=== PATIENT | female | born 1955 | race Caucasian/White ===

== ENCOUNTER 2018-01-09 12:11 | Outpatient (CLI) | payer MEDICARE, MEDICAID ==
[~2018-01-09 12:11] MED LIST: HYDR25TA4 PO
== END 2018-01-09 23:59 | disposition home or self-care (01) ==
LOC: CARD DIAG 12:11
PROVIDERS: ATTEND Registered Nurse
DX: I07.1 Rheumatic tricuspid insufficiency (principal); F17.200 Nicotine dependence, unspecified, uncomplicated
CPT/HCPCS: 93306

== ENCOUNTER 2019-04-28 05:39 | Inpatient (IN) | payer MEDICARE, MEDICAID ==
[2019-04-23 11:37] LABS: BASOPHILS # (AUTO) 0.1 X10'3 (0-0.2); BASOPHILS % (AUTO) 1.5 % (0-1); CLARITY,URINE CLEAR (Clear); COLOR,URINE YELLOW (Yellow); EOSINOPHILS # (AUTO) 0.3 X10'3 (0-0.9); EOSINOPHILS % (AUTO) 3.7 % (0-6); GLUCOSE, URINE NEGATIVE (Neg); KETONES,URINE NEGATIVE (Neg); LEUKOCYTE ESTERASE ,URINE NEGATIVE (Neg); LYMPHOCYTES # (AUTO) 2.1 X10'3 (1.1-4.8); LYMPHOCYTES % (AUTO) 24.9 % (21-51); MEAN CORPUSCULAR HEMOGLOBIN 32.8 PG (27.0-31.0); MEAN CORPUSCULAR HGB CONC 34.6 g/dL (33.0-36.5); MEAN CORPUSCULAR VOLUME 94.7 FL (78-98); MEAN PLATELET VOLUME 7.2 FL (7.4-10.4); MONOCYTES # (AUTO) 0.5 X10'3 (0-0.9); MONOCYTES % (AUTO) 6.3 % (2-12); NEUTROPHILS # (AUTO) 5.4 X10'3 (1.8-7.7); NEUTROPHILS % (AUTO) 63.6 % (42-75); NITRITES, URINE NEGATIVE (Neg); OCCULT BLOOD,URINE NEGATIVE (Neg); PRE OP HEMATOCRIT 44.9 % (35.0-45.0); PRE OP HEMOGLOBIN 15.6 g/dL (12.0-16.0); PRE OP PLATELET COUNT 324 X10'3 (140-440); PROTEIN,URINE NEGATIVE (Neg); RED BLOOD COUNT 4.74 X10'6 (4.20-5.60); RED CELL DISTRIBUTION WIDTH 14.4 % (11.5-14.5); UROBILINOGEN,URINE 0.2 E.U/dL (0.2-1.0)
[2019-04-23 11:39] LABS: UA COLLECTION TYPE CLN CATCH MIDSTREAM
[2019-04-23 11:50] LABS: PRE OP INR 0.9 INR; PRE OP PROTIME 9.9 SECONDS (9.0-12.0)
[2019-04-23 11:54] LABS: ALBUMIN 3.6 G/DL (3.4-5.0); ALBUMIN/GLOBULIN RATIO 0.8 (1.1-1.5); ALKALINE PHOSPHATASE 110 IU/L (46-116); BLOOD UREA NITROGEN 6 MG/DL (7-18); BUN/CREATININE RATIO 8.8 (6.6-38.0); CALCIUM 9.2 MG/DL (8.5-10.1); CHLORIDE 101 MMOL/L (99-107); CREATININE 0.68 MG/DL (0.40-0.90); PRE OP ALT 18 U/L (30-65); PRE OP ANION GAP 8 (8-16); PRE OP AST 16 U/L (10-37); PRE OP BILIRUB, TOTAL 0.4 MG/DL (0.0-1.0); PRE OP GLUCOSE 92 MG/DL (70-104); PRE OP POTASSIUM 4.6 MMOL/L (3.4-5.1); PRE OP SODIUM 138 MMOL/L (135-145); TOTAL CARBON DIOXIDE 28.8 MMOL/L (24-32); TOTAL PROTEIN 8.1 G/DL (6.4-8.2); eGFR 87 ML/MIN
[2019-04-28] VITALS (21 sets, daily range): BP systolic 121–176; BP diastolic 50–76
[~2019-04-28] VITALS: Ht 160 cm; Wt 83.0 kg
[~2019-04-28 05:39] MED LIST changes: +ALBU8.5H8 INH; +ASPI-1265 PO; +ATOR20TA66 PO; +CHOL200013 PO; +CYAN100097 PO; +FERR325T28 PO; -HYDR25TA4 PO; +LISI10TA4 PO; +TIOT4MIS2 PO; +albuterol 2.5 MG/3 ML nebule NEB ONE; +cefazolin/dext.iso 2gm/50ml 50 ML IV ONE; +famotidine 20mg tablet PO ONE; +ringers solution, lacted 1,000 ML IV SCH
[2019-04-28] MEDS ORDERED: phenylephrine inj 20 MG in normal saline 250ml IV soln 250 ML IV PRN (06:50)
[2019-04-28] MEDS ORDERED: nitroPRUSSIDE in NS 100 ML IV PRN (06:50)
[2019-04-28] MEDS ORDERED: heparin 10,000 units/1 ML INJ ONE (07:19)
[2019-04-28] MEDS ORDERED: LIDOcaine 1% (10mg/ml) 2ml vial ONE ×2 (07:19→07:33)
[2019-04-28] MEDS ORDERED: morphine 4 MG/ML inj SYRINge IV PRN ×2 (08:45)
[2019-04-28] MEDS ORDERED: meperidine/PF 25mg/ml syringe IV PRN ×3 (08:45)
[2019-04-28] MEDS ORDERED: ringers solution, lacted 1,000 ML IV SCH (08:45)
[2019-04-28] MEDS ORDERED: proCHLORperazine 10 MG/2 ml inj IV PRN (08:45)
[2019-04-28] MEDS ORDERED: ondansetron/PF 4mg/2ml inj IV PRN ×2 (08:45→12:35)
[2019-04-28] MEDS ORDERED: dexamethasone sod phosphate 10mg/ml inj ONE (09:50)
[2019-04-28] MEDS ORDERED: sevoflurane 250ml liquid IH ONE (09:50)
[2019-04-28] MEDS ORDERED: glycopyrrolate 0.2mg/ml inj ONE (09:50)
[2019-04-28] MEDS ORDERED: phenylephrine 10mg/ml inj. ONE (09:50)
[2019-04-28] MEDS ORDERED: fentaNYL/PF 50MCG/1 ML 2ML syringe ONE (09:50)
[2019-04-28] MEDS ORDERED: desflurane 240ml liquid inh. IH ONE (09:50)
[2019-04-28] MEDS ORDERED: ondansetron/PF 4mg/2ml inj ONE (09:50)
[2019-04-28] MEDS ORDERED: neostigmine methylsulfate 1 MG/ML 10ml vial ONE (09:50)
[2019-04-28] MEDS ORDERED: nitroPRUSSIDE 20mg/NS 100mL (0.2mg/mL) VIAL IV ONE (09:50)
[2019-04-28] MEDS ORDERED: midazolam 2 mg/2 ml injection ONE (09:51)
[2019-04-28] MEDS ORDERED: LIDOcaine 2% (20mg/ml) 5ml vial ONE (10:00)
[2019-04-28] MEDS ORDERED: heparin 1,000unit/ml 10ml vial 10 ML ONE (10:26)
[2019-04-28] MEDS ORDERED: meperidine/PF 50mg/ml syringe ONE (11:09)
[2019-04-28] MEDS ORDERED: propofol inj 20 ML IV ONE (11:29)
--- NOTE | 2019-04-28 11:34 | NUR ---
Received from OR via ICU BED , accompanied by Anesthesiologist MICHAELLE and report given by Anesthesiolgist. PATIENT WITH ART LINE TO RIGHT UE. 18G PIV IN LEFT HAND RUNNING NIPRIDE AND LR. LEFT NECK DRESSINGS ARE CDI CURRENTLY WITH A JOSE GUADALUPE DRAIN MAINTAINING SUCTION. SCDS DONNED. 10L MASK ON WITH 97% SATURATIONS. TEMP WNL AND PATIENT IS NEUROLOGICALLY INTACT. PUSH PULLS AND FUNDRAISING MANAGER ALL EQUAL. TONGUE MIDLINE AND NO FACIAL ASYMMETRY PRESENT. SPEECH IS CLEAR. DISCOMFORT TO LEFT NECK BUT DECLINES PAIN MEDS AT THIS TIME. WILL CONTINUE TO ASSEESS. Addendum: 04/28/19 at 1147 by Yusef Montes RN, RN Amended: Links added.
--- NOTE | 2019-04-28 12:14 | NUR ---
ALL CRITERIA FOR TRANSFER TO THE FLOOR HAS BEEN ACHIEVED. VSS. BED LOW, CALL LIGHT AND VS. SET IN PLACE. RN PRESENT TO ACCEPT CARE. PATIENT RESTING COMFORTABLY IN BED. BELONGINGS SENT WITH PATIENT. DRESSINGS CDI. PATIENTS RN CLINTON PRESENT TO ACCEPT CARE. VSS. PATIENT ONLY HAS C.O. SORE/ DRY THROAT. DRESSING TO LEFT SIDE OF NECK IS CDI. JOSE GUADALUPE MAINTAINING SUCTION. SITTING UPRIGHT IN BED. PATIENT STILL NEUROLOGICALLY INTACT. DEBBIE ALONZO ACCEPTING CARE OF PATIENT. Addendum: 04/28/19 at 1225 by Yusef Williamson - DEBBIE LEWIS Amended: Links added.
--- NOTE | 2019-04-28 14:00 | NUR ---
Per Dr. Barbosa, no meds, no labs, no new orders other than already in place.
[2019-04-28] MEDS ORDERED: vitamin D (cholecalciferol) 1,000 unit tablet PO SCH (14:35)
[2019-04-28] MEDS ORDERED: albuterol 2.5 MG/3 ML nebule NEB PRN (14:35)
[2019-04-28] MEDS: ferrous sulfate 325mg tablet PO SCH (20:50)
[2019-04-28] MEDS: nitroPRUSSIDE in NS 100 ML IV PRN (20:50)
[2019-04-28] MEDS ORDERED: HYDROcodone/acetaminophen 5mg/325mg tablet PO PRN (22:10)
[2019-04-29] VITALS (16 sets, daily range): BP systolic 128–179; BP diastolic 59–84
[2019-04-29] MEDS: nitroPRUSSIDE in NS 100 ML IV PRN ×2 (01:33→09:51)
[2019-04-29] MEDS ORDERED: famotidine 20mg tablet PO ONE (07:20)
[2019-04-29] MEDS ORDERED: atorvastatin 20mg tablet PO SCH (08:00)
[2019-04-29] MEDS ORDERED: aspirin 81mg tab.chew PO SCH (08:00)
[2019-04-29] MEDS ORDERED: cyanocobalamin 500mcg tablet PO SCH (08:00)
[2019-04-29] MEDS ORDERED: lisinopril 10 MG tablet PO SCH (08:00)
[2019-04-29] MEDS: ipratropium 0.5 MG/2.5ML nebule NEB SCH ×2 (08:14→13:43)
[2019-04-29] MEDS: ferrous sulfate 325mg tablet PO SCH (08:57)
[2019-04-29] MEDS ORDERED: metoprolol tartrate 50mg tablet PO SCH ×2 (10:00→20:00)
[2019-04-29] MEDS ORDERED: lisinopril 20mg tablet PO ONE (10:10)
[2019-04-29] MEDS ORDERED: HYDR-4383 PO (14:48)
[2019-04-29] MEDS ORDERED: METO-467 PO (14:48)
--- NOTE | 2019-04-29 16:05 | NUR ---
pt. discharged per Dr. Barbosa verbal order. Metoprolol called in to [facility] pharmacy. [place] will be called in by Dr. Avila' office.
--- NOTE | 2019-04-29 16:50 | NUR ---
Leon panda called into Yudith @ Dr. Avila' office
== END 2019-04-29 15:15 | disposition home or self-care (01) | DRG 39 ==
LOC: PAS IN 05:39 → ICU 2S 12:12 → EDSTATUS 12:30
PROVIDERS: ADMIT Surgery; ATTEND Surgery
PROC: 03CN0ZZ Extirpation of Matter from Left External Carotid Artery, Open Approach (ICD-10-PCS; 2019-04-28)
PROC: 03CL0ZZ Extirpation of Matter from Left Internal Carotid Artery, Open Approach (ICD-10-PCS; 2019-04-28)
PROC: 03UJ0KZ Supplement Left Common Carotid Artery with Nonautologous Tissue Substitute, Open Approach (ICD-10-PCS; 2019-04-28)
PROC: 03UL0KZ Supplement Left Internal Carotid Artery with Nonautologous Tissue Substitute, Open Approach (ICD-10-PCS; 2019-04-28)
PROC: 03UN0KZ Supplement Left External Carotid Artery with Nonautologous Tissue Substitute, Open Approach (ICD-10-PCS; 2019-04-28)
PROC: 03CJ0ZZ Extirpation of Matter from Left Common Carotid Artery, Open Approach (ICD-10-PCS; principal; 2019-04-28 09:50)
DX: I65.22 Occlusion and stenosis of left carotid artery (principal); F17.210 Nicotine dependence, cigarettes, uncomplicated; K21.9 Gastro-esophageal reflux disease without esophagitis; I10 Essential (primary) hypertension; J44.9 Chronic obstructive pulmonary disease, unspecified; E66.9 Obesity, unspecified; Z68.32 Body mass index [BMI] 32.0-32.9, adult; Z82.49 Family history of ischemic heart disease and other diseases of the circulatory system; Z90.49 Acquired absence of other specified parts of digestive tract
CPT/HCPCS: 36415; 71046; 80053; 81003; 82948; 85025; 85610; 85730; 86885; 86900; 86901; 87081; 94640; 94760; 95813; 95816; A4618; A7000; C1768; G0378; J1100; J1644; J2001; J2175; J2250; J2370; J2405; J2704; J2710; J3010; J3420; J3490; J7040; J7050; J7120

== ENCOUNTER 2019-04-30 08:41 | Emergency (ER) | payer MEDICARE, MEDICAID ==
[~2019-04-30] VITALS: Ht 160 cm; Wt 85.8 kg
[~2019-04-30 08:41] MED LIST changes: -ALBU8.5H8 INH; +HYDR-4383 PO; +METO-467 PO; -albuterol 2.5 MG/3 ML nebule NEB ONE; -cefazolin/dext.iso 2gm/50ml 50 ML IV ONE; -famotidine 20mg tablet PO ONE; -ringers solution, lacted 1,000 ML IV SCH
--- NOTE | 2019-04-30 09:03 | NUR ---
awaiting ed md.
--- NOTE | 2019-04-30 09:19 | NUR ---
Dr. See at bedside.
[2019-04-30 09:35] LABS: CLARITY,URINE CLEAR (Clear); COLOR,URINE YELLOW (Yellow); GLUCOSE, URINE NEGATIVE (Neg); KETONES,URINE NEGATIVE (Neg); LEUKOCYTE ESTERASE ,URINE NEGATIVE (Neg); NITRITES, URINE NEGATIVE (Neg); OCCULT BLOOD,URINE MODERATE (Neg); PROTEIN,URINE NEGATIVE (Neg); UROBILINOGEN,URINE 0.2 E.U/dL (0.2-1.0)
[2019-04-30 09:36] LABS: UA COLLECTION TYPE FOLEY CATH
--- NOTE | 2019-04-30 09:40 | NUR ---
awaiting for ua result.
[2019-04-30 09:42] LABS: SQUAMOUS EPITHELIAL CELL,UR FEW /LPF (FEW)
[2019-04-30 09:43] LABS: RBC,URINE 20-50 /HPF (0-2); WBC,URINE 0-4 /HPF (0-4)
[2019-04-30 09:44] LABS: BACTERIA,URINE FEW /HPF (Neg)
[2019-04-30 10:32] VITALS: BP 129/60
== END 2019-04-30 10:35 | disposition home or self-care (01) ==
LOC: ER 08:41
DX: R33.9 Retention of urine, unspecified (principal); G89.29 Other chronic pain; Z79.899 Other long term (current) drug therapy; Z88.0 Allergy status to penicillin; Z79.82 Long term (current) use of aspirin
CPT/HCPCS: 81001; 99284

== ENCOUNTER 2020-03-30 01:35 | Emergency (ER) | payer MEDICARE, MEDICAID ==
[~2020-03-30] VITALS: Ht 160 cm; Wt 80.9 kg
[2020-03-30] MEDS ORDERED: oxymetazoline 15 ML nasal spray NS ONE (01:45)
[2020-03-30 02:51] VITALS: BP 145/66
== END 2020-03-30 02:52 | disposition home or self-care (01) ==
LOC: ER 01:35
DX: R04.0 Epistaxis (principal); I25.10 Atherosclerotic heart disease of native coronary artery without angina pectoris; G89.29 Other chronic pain; Z98.61 Coronary angioplasty status; Z98.890 Other specified postprocedural states; Z88.0 Allergy status to penicillin; Z79.82 Long term (current) use of aspirin; Z79.899 Other long term (current) drug therapy
CPT/HCPCS: 99282; 99284

== ENCOUNTER 2021-04-05 10:25 | Day surgery (SDC) | payer MEDICARE, MEDICAID ==
[2021-03-22 14:19] LABS: BASOPHILS # (AUTO) 0.1 X10'3 (0-0.2); BASOPHILS % (AUTO) 1.1 % (0-1); EOSINOPHILS # (AUTO) 0.3 X10'3 (0-0.9); EOSINOPHILS % (AUTO) 3.3 % (0-6); LYMPHOCYTES # (AUTO) 1.2 X10'3 (1.1-4.8); LYMPHOCYTES % (AUTO) 14.8 % (21-51); MEAN CORPUSCULAR HEMOGLOBIN 32.1 PG (27.0-31.0); MEAN CORPUSCULAR HGB CONC 32.6 g/dL (33.0-36.5); MEAN CORPUSCULAR VOLUME 98.4 FL (78-98); MEAN PLATELET VOLUME 7.1 FL (7.4-10.4); MONOCYTES # (AUTO) 0.6 X10'3 (0-0.9); MONOCYTES % (AUTO) 7.6 % (2-12); NEUTROPHILS # (AUTO) 6.1 X10'3 (1.8-7.7); NEUTROPHILS % (AUTO) 73.2 % (42-75); PRE OP HEMOGLOBIN 11.1 g/dL (12.0-16.0); PRE OP PLATELET COUNT 433 X10'3 (140-440); RED BLOOD COUNT 3.45 X10'6 (4.20-5.60)
[2021-03-22 14:32] LABS: ALBUMIN 3.4 G/DL (3.4-5.0); ALBUMIN/GLOBULIN RATIO 0.9 (1.1-1.5); ALKALINE PHOSPHATASE 112 IU/L (46-116); BLOOD UREA NITROGEN 9 MG/DL (7-18); BUN/CREATININE RATIO 12.7 (6.6-38.0); CALCIUM 8.6 MG/DL (8.5-10.1); CHLORIDE 103 MMOL/L (99-107); CREATININE 0.71 MG/DL (0.40-0.90); PRE OP ALT 19 U/L (30-65); PRE OP ANION GAP 9 (8-16); PRE OP AST 18 U/L (10-37); PRE OP BILIRUB, TOTAL 0.1 MG/DL (0.0-1.0); PRE OP GLUCOSE 119 MG/DL (70-104); PRE OP POTASSIUM 4.1 MMOL/L (3.4-5.1); PRE OP SODIUM 138 MMOL/L (135-145); TOTAL CARBON DIOXIDE 26.5 MMOL/L (24-32); TOTAL PROTEIN 7.2 G/DL (6.4-8.2); eGFR 82 ML/MIN
[2021-04-05] VITALS (8 sets, daily range): BP systolic 128–163; BP diastolic 60–92
[~2021-04-05] VITALS: Ht 160 cm; Wt 83.2 kg
[~2021-04-05 10:25] MED LIST changes: +ALLER CLEAR PO; +CLOP75TA34 PO; +DOCUMENT DATE & TIME OF BETA-BLOCKER PO ONE; -HYDR-4383 PO; +LISI10TA27 PO; -LISI10TA4 PO; +MAGN500C16 PO; -METO-467 PO; +METO50TA17 PO; +OMEP40CA21 PO; -TIOT4MIS2 PO; +clindamycin-Cleocin 900mg/D5W 50 ML IV ONE; +famotidine 20mg tablet PO ONE; +ringers solution, lacted 1,000 ML IV SCH; +vancomycin 1,500 MG in NS 300ml IV soln IV ONE
[2021-04-05] MEDS ORDERED: triamcinolone acetonide 40mg/ml inj ONE (12:17)
[2021-04-05] MEDS ORDERED: BUPIVAcaine/PF 2.5mg/ml (0.25%) 10ml vial ONE (12:18)
[2021-04-05] MEDS ORDERED: dexamethasone sod phosphate 10mg/ml inj ONE (12:38)
[2021-04-05] MEDS ORDERED: ondansetron/PF 4mg/2ml inj ONE (12:38)
[2021-04-05] MEDS ORDERED: sevoflurane 250ml liquid IH ONE (12:38)
[2021-04-05] MEDS ORDERED: midazolam 1 mg/ML 2ml injection ONE (12:47)
[2021-04-05] MEDS ORDERED: fentaNYL/PF 50MCG/1 ML 2ML syringe ONE (12:47)
[2021-04-05] MEDS ORDERED: propofol inj 20 ML IV ONE (12:48)
[2021-04-05] MEDS ORDERED: LIDOcaine 2% (20mg/ml) 5ml vial ONE (12:48)
[2021-04-05] MEDS ORDERED: ketorolac trometh. 30mg/ml inj. ONE (14:00)
--- NOTE | 2021-04-05 14:12 | NUR ---
Received from OR via [facility] IN STABLE CONDITION , accompanied by Anesthesiologist and SPINNER FRAME report given by SPINNER FRAME AND Anesthesiolgist. Addendum: 04/05/21 at 1730 by Gaby Ferrell RN Amended: Links added.
--- NOTE | 2021-04-05 15:22 | NUR ---
PATIENT DISCHARGED HOME FROM PACU IN STABLE CONDITION AFTER WRITTEN AND VERBAL DISCHARGE INSRUCTIONS GIVEN. PATIENT GAVE VERBAL UNDERSTANDING OF INSTRUCTIONS GIVEN. PATIENT LEFT FACILITY IN WHEELCHAIR WITH RN. Addendum: 04/05/21 at 1736 by Gaby Ferrell RN Amended: Links added.
== END 2021-04-05 15:22 | disposition home or self-care (01) ==
LOC: PAS 10:25
PROVIDERS: ATTEND Orthopaedic Surgery
DX: S83.231A Complex tear of medial meniscus, current injury, right knee, initial encounter (principal); S83.271A Complex tear of lateral meniscus, current injury, right knee, initial encounter; M94.261 Chondromalacia, right knee; J44.9 Chronic obstructive pulmonary disease, unspecified; I10 Essential (primary) hypertension; K21.9 Gastro-esophageal reflux disease without esophagitis; E78.5 Hyperlipidemia, unspecified; E66.8 Other obesity; Z68.31 Body mass index [BMI] 31.0-31.9, adult; M17.0 Bilateral primary osteoarthritis of knee; F17.210 Nicotine dependence, cigarettes, uncomplicated; Z20.822 Contact with and (suspected) exposure to COVID-19; Z79.899 Other long term (current) drug therapy; Z79.82 Long term (current) use of aspirin; Z79.01 Long term (current) use of anticoagulants; Z88.8 Allergy status to other drugs, medicaments and biological substances; Z90.49 Acquired absence of other specified parts of digestive tract; Z98.890 Other specified postprocedural states; Z98.41 Cataract extraction status, right eye; Z98.42 Cataract extraction status, left eye; G89.29 Other chronic pain; Z87.19 Personal history of other diseases of the digestive system; Z88.0 Allergy status to penicillin; X58.XXXA Exposure to other specified factors, initial encounter; Y93.89 Activity, other specified; Y92.89 Other specified places as the place of occurrence of the external cause; Y99.8 Other external cause status
CPT/HCPCS: 29873; 29879; 29880; 36415; 71046; 80053; 82948; 85025; J1885; J2001; J2250; J2704; J3010; J3301; J3370; J3490; J7040; U0003; U0005; Z7506; Z7508; Z7512; A4215; A4618; A6250; A6449; A7000; J1100; J2405; J7120

== ENCOUNTER 2021-07-19 10:31 | Emergency (ER) | payer MEDICARE, MEDICAID ==
[~2021-07-19] VITALS: Ht 160 cm; Wt 83.2 kg
[2021-07-19] VITALS (8 sets, daily range): BP systolic 121–140; BP diastolic 58–92
[~2021-07-19 10:31] MED LIST changes: +ALBU18HF2 PO; -DOCUMENT DATE & TIME OF BETA-BLOCKER PO ONE; +TIOT4MIS2 PO; -clindamycin-Cleocin 900mg/D5W 50 ML IV ONE; -famotidine 20mg tablet PO ONE; -ringers solution, lacted 1,000 ML IV SCH; -vancomycin 1,500 MG in NS 300ml IV soln IV ONE
[2021-07-19 11:13] LABS: BASOPHILS # (AUTO) 0.1 X10'3 (0-0.2); BASOPHILS % (AUTO) 1.4 % (0-1); EOSINOPHILS # (AUTO) 0.1 X10'3 (0-0.9); EOSINOPHILS % (AUTO) 0.9 % (0-6); LYMPHOCYTES # (AUTO) 0.6 X10'3 (1.1-4.8); LYMPHOCYTES % (AUTO) 10.7 % (21-51); MEAN CORPUSCULAR HGB CONC 30.2 g/dL (33.0-36.5); MEAN CORPUSCULAR VOLUME 89.5 FL (78-98); MEAN PLATELET VOLUME 7.5 FL (7.4-10.4); MONOCYTES # (AUTO) 0.6 X10'3 (0-0.9); MONOCYTES % (AUTO) 9.2 % (2-12); NEUTROPHILS # (AUTO) 4.7 X10'3 (1.8-7.7); NEUTROPHILS % (AUTO) 77.8 % (42-75); PLATELET COUNT 441 X10'3 (140-440); RED BLOOD COUNT 2.27 X10'6 (4.20-5.60); RED CELL DISTRIBUTION WIDTH 18.7 % (11.5-14.5); WHITE BLOOD COUNT 6.1 X10'3 (4.5-11.0)
[2021-07-19 11:34] LABS: HEMOGLOBIN 6.1 g/dl (12.0-16.0)
[2021-07-19 11:35] LABS: HEMATOCRIT 20.3 % (35.0-45.0)
[2021-07-19 13:35] LABS: ANISOCYTOSIS 2+; PLATELET ESTIMATE INCREASED
[2021-07-19 13:36] LABS: HYPOCHROMASIA 3+
[2021-07-19 16:14] LABS: ALANINE AMINOTRANSFERASE 14 U/L (12-78); ALBUMIN/GLOBULIN RATIO 0.9 (1.1-1.5); ALKALINE PHOSPHATASE 105 IU/L (46-116); ANION GAP 12 (8-16); ASPARTATE AMINO TRANSFERASE 14 U/L (10-37); BILIRUBIN,TOTAL 0.3 MG/DL (0.1-1.0); BLOOD UREA NITROGEN 15 MG/DL (7-18); BUN/CREATININE RATIO 22.1 (6.6-38.0); CALCIUM 8.6 MG/DL (8.5-10.1); CHLORIDE 99 MMOL/L (99-107); CREATININE 0.68 MG/DL (0.40-0.90); GLUCOSE 87 MG/DL (70-104); POTASSIUM 4.1 MMOL/L (3.5-5.1); SODIUM 133 MMOL/L (135-145); TOTAL CARBON DIOXIDE 22.3 MMOL/L (24-32); TOTAL PROTEIN 6.3 G/DL (6.4-8.2); eGFR 86 ML/MIN
[2021-07-19 20:59] LABS: BASOPHILS # (AUTO) 0.1 X10'3 (0-0.2); BASOPHILS % (AUTO) 1.9 % (0-1); EOSINOPHILS # (AUTO) 0.2 X10'3 (0-0.9); EOSINOPHILS % (AUTO) 2.5 % (0-6); HEMATOCRIT 26.5 % (35.0-45.0); HEMOGLOBIN 8.5 g/dl (12.0-16.0); LYMPHOCYTES # (AUTO) 0.8 X10'3 (1.1-4.8); LYMPHOCYTES % (AUTO) 12.3 % (21-51); MEAN CORPUSCULAR HEMOGLOBIN 27.8 PG (27.0-31.0); MEAN CORPUSCULAR HGB CONC 32.1 g/dL (33.0-36.5); MEAN CORPUSCULAR VOLUME 86.6 FL (78-98); MEAN PLATELET VOLUME 7.8 FL (7.4-10.4); MONOCYTES # (AUTO) 0.7 X10'3 (0-0.9); MONOCYTES % (AUTO) 10.7 % (2-12); NEUTROPHILS # (AUTO) 4.9 X10'3 (1.8-7.7); NEUTROPHILS % (AUTO) 72.6 % (42-75); PLATELET COUNT 415 X10'3 (140-440); RED BLOOD COUNT 3.06 X10'6 (4.20-5.60); RED CELL DISTRIBUTION WIDTH 17.9 % (11.5-14.5); WHITE BLOOD COUNT 6.8 X10'3 (4.5-11.0)
[2021-07-19 21:34] LABS: OCCULT BLOOD STOOL POSITIVE (Neg)
== END 2021-07-19 22:17 | disposition home or self-care (01) ==
LOC: ER 10:31
DX: D64.9 Anemia, unspecified (principal); K92.2 Gastrointestinal hemorrhage, unspecified; R06.02 Shortness of breath; R53.83 Other fatigue; I25.10 Atherosclerotic heart disease of native coronary artery without angina pectoris; G89.29 Other chronic pain; Z86.2 Personal history of diseases of the blood and blood-forming organs and certain disorders involving the immune mechanism; Z98.890 Other specified postprocedural states; Z88.0 Allergy status to penicillin; Z79.82 Long term (current) use of aspirin; Z79.899 Other long term (current) drug therapy
CPT/HCPCS: 36415; 36430; 80053; 82272; 85008; 85025; 86885; 86900; 86901; 86920; 93005; 99285; P9016

== ENCOUNTER 2021-08-23 06:25 | Day surgery (SDC) | payer MEDICARE, MEDICAID ==
[2021-08-23] VITALS (7 sets, daily range): BP systolic 123–133; BP diastolic 45–68
[~2021-08-23] VITALS: Ht 157.5 cm; Wt 85.5 kg
[~2021-08-23 06:25] MED LIST changes: -ALLER CLEAR PO; -ASPI-1265 PO; -CHOL200013 PO
[2021-08-23] MEDS ORDERED: normal saline 1000ml 1,000 ML IV SCH ×2 (06:55→12:10)
[2021-08-23 07:13] LABS: BASOPHILS % (AUTO) 0.6 % (0-1); EOSINOPHILS # (AUTO) 0.2 X10'3 (0-0.9); EOSINOPHILS % (AUTO) 4.1 % (0-6); HEMATOCRIT 24.6 % (35.0-45.0); HEMOGLOBIN 7.8 g/dl (12.0-16.0); LYMPHOCYTES # (AUTO) 0.6 X10'3 (1.1-4.8); LYMPHOCYTES % (AUTO) 10.2 % (21-51); MEAN CORPUSCULAR HEMOGLOBIN 29.9 PG (27.0-31.0); MEAN CORPUSCULAR HGB CONC 31.7 g/dL (33.0-36.5); MEAN CORPUSCULAR VOLUME 94.2 FL (78-98); MEAN PLATELET VOLUME 7.4 FL (7.4-10.4); MONOCYTES # (AUTO) 0.4 X10'3 (0-0.9); MONOCYTES % (AUTO) 7.8 % (2-12); NEUTROPHILS # (AUTO) 4.3 X10'3 (1.8-7.7); NEUTROPHILS % (AUTO) 77.3 % (42-75); PLATELET COUNT 331 X10'3 (140-440); RED BLOOD COUNT 2.62 X10'6 (4.20-5.60); WHITE BLOOD COUNT 5.5 X10'3 (4.5-11.0)
[2021-08-23] MEDS ORDERED: LORA-641 PO (07:13)
[2021-08-23] MEDS ORDERED: CHOL20004 PO (07:13)
[2021-08-23 08:14] LABS: ANION GAP 6 (8-16); BLOOD UREA NITROGEN 14 MG/DL (7-18); BUN/CREATININE RATIO 22.6 (6.6-38.0); CALCIUM 8.4 MG/DL (8.5-10.1); CHLORIDE 106 MMOL/L (99-107); CREATININE 0.62 MG/DL (0.40-0.90); GLUCOSE 105 MG/DL (70-104); SODIUM 140 MMOL/L (135-145); TOTAL CARBON DIOXIDE 27.9 MMOL/L (24-32); eGFR > 90 ML/MIN
[2021-08-23] MEDS ORDERED: midazolam 1 mg/ML 2ml injection ONE ×3 (08:20→11:22)
[2021-08-23] MEDS ORDERED: fentaNYL/PF 50MCG/1 ML 2ML syringe ONE ×3 (08:20→11:11)
[2021-08-23] MEDS ORDERED: LIDOcaine 1% 30ml preserv. free vial ONE (08:21)
[2021-08-23] MEDS ORDERED: iohexol 300mg/ml 100ml inj. ONE ×2 (08:21→09:59)
[2021-08-23] MEDS ORDERED: heparin 1,000 UNITS/NS 500ml 500 ML ONE ×2 (08:22→11:18)
[2021-08-23 08:25] LABS: POTASSIUM 4.7 MMOL/L (3.5-5.1)
[2021-08-23 09:03] LABS: ANISOCYTOSIS 2+; HYPOCHROMASIA 1+; PLATELET ESTIMATE NORMAL; POLYCHROMASIA 1+
[2021-08-23 09:04] LABS: STOMATOCYTES 1+
[2021-08-23] MEDS ORDERED: heparin 1,000unit/ml 10ml vial 10 ML ONE (09:46)
== END 2021-08-23 15:25 | disposition home or self-care (01) ==
LOC: SSTAY O 06:25
PROVIDERS: ATTEND Radiology Vascular & Interventional Radiology
DX: K55.1 Chronic vascular disorders of intestine (principal); F17.210 Nicotine dependence, cigarettes, uncomplicated; K21.9 Gastro-esophageal reflux disease without esophagitis; Z79.899 Other long term (current) drug therapy; Z88.0 Allergy status to penicillin; Z98.890 Other specified postprocedural states
CPT/HCPCS: 36415; 37236; 75726; 76937; 80048; 85025; 99152; 99153; C1725; C1760; C1769; C1876; C1894; J1644; J2250; J3010; J3490; J7030; Q9967; 36245; 37246; 85008; A6213; G0269

== ENCOUNTER 2022-01-03 13:08 | Emergency (ER) | payer MEDICARE, MEDICAID ==
[~2022-01-03] VITALS: Ht 160 cm; Wt 81.8 kg
[~2022-01-03 13:08] MED LIST changes: +CHOL20004 PO; -LISI10TA27 PO; +LORA-641 PO; -MAGN500C16 PO; +MAGN500C4 PO; -METO50TA17 PO
[2022-01-03 13:33] VITALS: BP 130/70
[2022-01-03 14:01] LABS: BASOPHILS # (AUTO) 0.1 X10'3 (0-0.2); BASOPHILS % (AUTO) 1.2 % (0-1); EOSINOPHILS # (AUTO) 0.1 X10'3 (0-0.9); EOSINOPHILS % (AUTO) 1.1 % (0-6); HEMATOCRIT 33.7 % (35.0-45.0); HEMOGLOBIN 11.1 g/dl (12.0-16.0); LYMPHOCYTES # (AUTO) 0.7 X10'3 (1.1-4.8); LYMPHOCYTES % (AUTO) 8.7 % (21-51); MEAN CORPUSCULAR HEMOGLOBIN 30.9 PG (27.0-31.0); MEAN CORPUSCULAR HGB CONC 32.9 g/dL (33.0-36.5); MEAN CORPUSCULAR VOLUME 93.8 FL (78-98); MEAN PLATELET VOLUME 6.6 FL (7.4-10.4); MONOCYTES # (AUTO) 0.6 X10'3 (0-0.9); MONOCYTES % (AUTO) 6.8 % (2-12); NEUTROPHILS # (AUTO) 6.9 X10'3 (1.8-7.7); NEUTROPHILS % (AUTO) 82.2 % (42-75); PLATELET COUNT 415 X10'3 (140-440); RED BLOOD COUNT 3.59 X10'6 (4.20-5.60); RED CELL DISTRIBUTION WIDTH 14.9 % (11.5-14.5); WHITE BLOOD COUNT 8.4 X10'3 (4.5-11.0)
[2022-01-03 14:22] LABS: ALANINE AMINOTRANSFERASE 14 U/L (12-78); ALBUMIN 3.2 G/DL (3.4-5.0); ALBUMIN/GLOBULIN RATIO 0.8 (1.1-1.5); ALKALINE PHOSPHATASE 91 IU/L (46-116); ANION GAP 9 (8-16); ASPARTATE AMINO TRANSFERASE 14 U/L (10-37); BILIRUBIN,TOTAL 0.2 MG/DL (0.1-1.0); BLOOD UREA NITROGEN 14 MG/DL (7-18); CALCIUM 8.4 MG/DL (8.5-10.1); CHLORIDE 102 MMOL/L (99-107); GLUCOSE 93 MG/DL (70-104); POTASSIUM 4.5 MMOL/L (3.5-5.1); SODIUM 136 MMOL/L (135-145); TOTAL CARBON DIOXIDE 25.2 MMOL/L (24-32); eGFR 83 ML/MIN
[2022-01-03] MEDS ORDERED: silver nitrate applicator stick TP ONE (15:10)
== END 2022-01-03 16:26 | disposition home or self-care (01) ==
LOC: ER 13:09
DX: R04.0 Epistaxis (principal); I25.10 Atherosclerotic heart disease of native coronary artery without angina pectoris; G89.29 Other chronic pain; Z86.2 Personal history of diseases of the blood and blood-forming organs and certain disorders involving the immune mechanism; Z98.890 Other specified postprocedural states; Z88.0 Allergy status to penicillin; Z79.899 Other long term (current) drug therapy
CPT/HCPCS: 30901; 36415; 80053; 85025; 99284

== ENCOUNTER 2022-01-06 11:42 | Emergency (ER) | payer MEDICARE, MEDICAID ==
[~2022-01-06] VITALS: Ht 160 cm; Wt 80.5 kg
[2022-01-06 11:52] VITALS: BP 136/56
== END 2022-01-06 14:08 | disposition home or self-care (01) ==
LOC: ER 11:43
DX: Z00.8 Encounter for other general examination (principal); R04.0 Epistaxis; I25.10 Atherosclerotic heart disease of native coronary artery without angina pectoris; G89.29 Other chronic pain; Z86.2 Personal history of diseases of the blood and blood-forming organs and certain disorders involving the immune mechanism; Z98.890 Other specified postprocedural states; Z88.0 Allergy status to penicillin; Z79.899 Other long term (current) drug therapy
CPT/HCPCS: 99281

== ENCOUNTER 2022-01-25 08:33 | Outpatient (CLI) | payer MEDICARE, MEDICAID ==
[2022-01-25] MEDS ORDERED: iohexol 350MG/ML 100ml bottle IV ONE (08:46)
== END 2022-01-25 23:59 | disposition home or self-care (01) ==
LOC: RAD 08:33
PROVIDERS: ATTEND Internal Medicine Interventional Cardiology
DX: R93.89 Abnormal findings on diagnostic imaging of other specified body structures (principal); Z98.890 Other specified postprocedural states
CPT/HCPCS: 70498; J3490; Q9967

== ENCOUNTER 2022-03-13 18:29 | Inpatient (IN) | payer MEDICARE, MEDICAID ==
[~2022-03-13] VITALS: Ht 157.5 cm; Wt 78.1 kg
[2022-03-13 19:53] LABS: EOSINOPHILS # (AUTO) 0.2 X10'3 (0-0.9); NEUTROPHILS # (AUTO) 4.2 X10'3 (1.8-7.7)
[2022-03-13 19:56] LABS: ABSOLUTE RETICS # 192200 /CUMM (23000-93000); BASOPHILS % (AUTO) 0.7 % (0-1); LYMPHOCYTES % (AUTO) 17.3 % (21-51); MEAN CORPUSCULAR HEMOGLOBIN 29.6 PG (27.0-31.0); MEAN CORPUSCULAR HGB CONC 30.6 g/dL (33.0-36.5); MEAN CORPUSCULAR VOLUME 96.8 FL (78-98); MEAN PLATELET VOLUME 7.4 FL (7.4-10.4); MONOCYTES # (AUTO) 0.6 X10'3 (0-0.9); MONOCYTES % (AUTO) 9.3 % (2-12); NEUTROPHILS % (AUTO) 69.7 % (42-75); PLATELET COUNT 407 X10'3 (140-440); RED BLOOD COUNT 2.24 X10'6 (4.20-5.60); RED CELL DISTRIBUTION WIDTH 17.4 % (11.5-14.5); RETICULOCYTE % (AUTO) 8.6 % (0.5-1.5)
[2022-03-13 19:58] LABS: HEMOGLOBIN 6.6 g/dl (12.0-16.0)
[2022-03-13 19:59] LABS: HEMATOCRIT 21.7 % (35.0-45.0)
[2022-03-13 20:01] LABS: ALANINE AMINOTRANSFERASE 13 U/L (12-78); ALBUMIN 3.1 G/DL (3.4-5.0); ALBUMIN/GLOBULIN RATIO 0.9 (1.1-1.5); ALKALINE PHOSPHATASE 108 IU/L (46-116); ANION GAP 9 (8-16); ASPARTATE AMINO TRANSFERASE 14 U/L (10-37); BILIRUBIN,TOTAL 0.2 MG/DL (0.1-1.0); BLOOD UREA NITROGEN 8 MG/DL (7-18); BUN/CREATININE RATIO 10.4 (6.6-38.0); CALCIUM 8.5 MG/DL (8.5-10.1); CHLORIDE 99 MMOL/L (99-107); CREATININE 0.77 MG/DL (0.40-0.90); GLUCOSE 92 MG/DL (70-104); POTASSIUM 4.1 MMOL/L (3.5-5.1); SODIUM 134 MMOL/L (135-145); TOTAL CARBON DIOXIDE 26.4 MMOL/L (24-32); TOTAL PROTEIN 6.6 G/DL (6.4-8.2); eGFR 75 ML/MIN
[2022-03-13] MEDS ORDERED: ASPI-1397 PO (21:43)
[2022-03-13] MEDS ORDERED: LISI5TAB22 PO (21:43)
[2022-03-13] MEDS ORDERED: POTASSIUM BICARB 20meq eff tab 20 MEQ TABLET.EFF PO PRN ×2 (22:05)
[2022-03-13] MEDS ORDERED: acetaminophen 325mg tablet PO PRN (22:05)
[2022-03-13] MEDS ORDERED: magnesium 2GM in 50ml NS 50 ML IV PRN (22:05)
[2022-03-13] MEDS ORDERED: ondansetron/PF 4mg/2ml inj IV PRN (22:05)
[2022-03-13] MEDS ORDERED: potassium CL 10mEq/100ml bag 100 ML IV PRN (22:05)
[2022-03-13] MEDS ORDERED: cholecalciferol (vitamin D3) 1,000 unit (25mcg) tablet PO SCH (22:05)
[2022-03-13] MEDS ORDERED: magnesium 4gm in 100ml NS 100 ML IV PRN (22:05)
[2022-03-13 22:20] LABS: OCCULT BLOOD STOOL POSITIVE (Neg)
[2022-03-13 22:59] VITALS: BP 125/46
[2022-03-13] MEDS ORDERED: albuterol 2.5 MG/3 ML nebule NEB PRN (23:05)
[2022-03-13] MEDS ORDERED: ipratropium/albuterol 3ml nebule NEB PRN (23:05)
[2022-03-13 23:15] VITALS: BP 117/49
--- NOTE | 2022-03-13 23:17 | NUR ---
Patient resting comfortably, denies any symptoms indicative of a reaction, no needs at this time.
[2022-03-14] VITALS (18 sets, daily range): BP systolic 123–151; BP diastolic 52–83
[2022-03-14] MEDS: pantoprazole 40MG/NS 100ML BAG 100 ML IV SCH ×5 (01:00→20:00)
[2022-03-14 04:06] LABS: HEMATOCRIT 29.3 % (35.0-45.0); HEMOGLOBIN 9.2 g/dl (12.0-16.0); MEAN CORPUSCULAR HEMOGLOBIN 29.3 PG (27.0-31.0); MEAN CORPUSCULAR HGB CONC 31.4 g/dL (33.0-36.5); MEAN CORPUSCULAR VOLUME 93.2 FL (78-98); MEAN PLATELET VOLUME 7.3 FL (7.4-10.4); PLATELET COUNT 350 X10'3 (140-440); RED BLOOD COUNT 3.14 X10'6 (4.20-5.60); RED CELL DISTRIBUTION WIDTH 17.3 % (11.5-14.5); WHITE BLOOD COUNT 5.6 X10'3 (4.5-11.0)
[2022-03-14 04:20] LABS: ALANINE AMINOTRANSFERASE 11 U/L (12-78); ALBUMIN 2.8 G/DL (3.4-5.0); ALBUMIN/GLOBULIN RATIO 0.9 (1.1-1.5); ALKALINE PHOSPHATASE 101 IU/L (46-116); ANION GAP 9 (8-16); ASPARTATE AMINO TRANSFERASE 12 U/L (10-37); BILIRUBIN,TOTAL 0.8 MG/DL (0.1-1.0); BLOOD UREA NITROGEN 7 MG/DL (7-18); BUN/CREATININE RATIO 9.9 (6.6-38.0); CALCIUM 8.3 MG/DL (8.5-10.1); CHLORIDE 102 MMOL/L (99-107); CREATININE 0.71 MG/DL (0.40-0.90); GLUCOSE 87 MG/DL (70-104); MAGNESIUM 2.1 MG/DL (1.5-2.4); POTASSIUM 4.2 MMOL/L (3.5-5.1); SODIUM 137 MMOL/L (135-145); eGFR 82 ML/MIN
--- NOTE | 2022-03-14 06:32 | NUR ---
Report given to DEBBIE Olivera. Pt is resting comfortably. All patient questions, concerns, and priorities have been met.
[2022-03-14] MEDS: atorvastatin 20mg tablet PO SCH (07:35)
[2022-03-14] MEDS: ferrous sulfate 325mg tablet PO SCH ×2 (07:35→19:54)
[2022-03-14] MEDS: docusate sod 100mg capsule PO SCH ×2 (07:36→19:54)
[2022-03-14] MEDS: cyanocobalamin 500mcg tablet PO SCH (07:36)
[2022-03-14] MEDS: magnesium oxide 400mg tablet PO SCH ×2 (07:37→19:54)
[2022-03-14] MEDS: loratadine 10mg tablet PO SCH (07:37)
[2022-03-14] MEDS: lisinopril 5mg tablet PO SCH (07:42)
[2022-03-14] MEDS: K and/or MAG REPLACEMENT MC SCH ×2 (07:55→19:53)
[2022-03-14] MEDS ORDERED: aspirin 81mg, enteric-coated 1 TAB TABLET.DR PO SCH (08:00)
[2022-03-14] MEDS ORDERED: pantoprazole 40mg Tablet.DR PO SCH (08:00)
[2022-03-14 08:27] LABS: HEMATOCRIT 28.7 % (35.0-45.0); HEMOGLOBIN 9.3 g/dl (12.0-16.0); MEAN CORPUSCULAR HEMOGLOBIN 30.3 PG (27.0-31.0); MEAN CORPUSCULAR HGB CONC 32.4 g/dL (33.0-36.5); MEAN CORPUSCULAR VOLUME 93.5 FL (78-98); MEAN PLATELET VOLUME 7.2 FL (7.4-10.4); PLATELET COUNT 351 X10'3 (140-440); RED BLOOD COUNT 3.07 X10'6 (4.20-5.60); RED CELL DISTRIBUTION WIDTH 17.2 % (11.5-14.5); WHITE BLOOD COUNT 6.3 X10'3 (4.5-11.0)
[2022-03-14] MEDS: ipratropium 0.5 MG/2.5ML nebule NEB SCH ×3 (08:29→20:28)
[2022-03-14] MEDS ORDERED: fentaNYL/PF 50MCG/1 ML 2ML syringe ONE (15:11)
[2022-03-14] MEDS ORDERED: MIDAZolam 1 MG/ML 5ML VIAL ONE ×2 (15:11)
[2022-03-14] MEDS ORDERED: LIDOcaine Viscous 15ml cup ONE (15:11)
--- NOTE | 2022-03-14 17:30 | NUR ---
Patient return from Endoscopy via a wheelchair. Patient alert and orientated. Protonix reconnected and infuse at 20cc/hr. Patient's vitals stable. Patient asking for food. Dr clive mancilla. Awaiting return phone call.
--- NOTE | 2022-03-14 18:54 | NUR ---
Report given to night nurse and informed that patient still needs order for diet.
[2022-03-14 20:37] LABS: HEMATOCRIT 30.2 % (35.0-45.0); HEMOGLOBIN 9.6 g/dl (12.0-16.0); MEAN CORPUSCULAR HEMOGLOBIN 29.9 PG (27.0-31.0); MEAN CORPUSCULAR HGB CONC 31.9 g/dL (33.0-36.5); MEAN CORPUSCULAR VOLUME 93.9 FL (78-98); MEAN PLATELET VOLUME 7.3 FL (7.4-10.4); PLATELET COUNT 365 X10'3 (140-440); RED BLOOD COUNT 3.21 X10'6 (4.20-5.60); RED CELL DISTRIBUTION WIDTH 17.8 % (11.5-14.5); WHITE BLOOD COUNT 5.1 X10'3 (4.5-11.0)
[2022-03-15 01:28] LABS: HEMATOCRIT 26.5 % (35.0-45.0); HEMOGLOBIN 8.6 g/dl (12.0-16.0); MEAN CORPUSCULAR HEMOGLOBIN 30.1 PG (27.0-31.0); MEAN CORPUSCULAR HGB CONC 32.3 g/dL (33.0-36.5); MEAN CORPUSCULAR VOLUME 93.3 FL (78-98); MEAN PLATELET VOLUME 7.3 FL (7.4-10.4); PLATELET COUNT 334 X10'3 (140-440); RED BLOOD COUNT 2.84 X10'6 (4.20-5.60); RED CELL DISTRIBUTION WIDTH 17.6 % (11.5-14.5); WHITE BLOOD COUNT 5.4 X10'3 (4.5-11.0)
[2022-03-15] MEDS: pantoprazole 40MG/NS 100ML BAG 100 ML IV SCH ×3 (01:28→11:00)
[2022-03-15 01:41] LABS: ALANINE AMINOTRANSFERASE 13 U/L (12-78); ALBUMIN 2.6 G/DL (3.4-5.0); ALBUMIN/GLOBULIN RATIO 0.9 (1.1-1.5); ALKALINE PHOSPHATASE 100 IU/L (46-116); ANION GAP 9 (8-16); ASPARTATE AMINO TRANSFERASE 15 U/L (10-37); BILIRUBIN,TOTAL 0.5 MG/DL (0.1-1.0); BLOOD UREA NITROGEN 9 MG/DL (7-18); BUN/CREATININE RATIO 12.3 (6.6-38.0); CALCIUM 8.2 MG/DL (8.5-10.1); CHLORIDE 105 MMOL/L (99-107); CREATININE 0.73 MG/DL (0.40-0.90); GLUCOSE 88 MG/DL (70-104); MAGNESIUM 2.1 MG/DL (1.5-2.4); POTASSIUM 3.9 MMOL/L (3.5-5.1); SODIUM 138 MMOL/L (135-145); TOTAL CARBON DIOXIDE 24.3 MMOL/L (24-32); TOTAL PROTEIN 5.6 G/DL (6.4-8.2); eGFR 80 ML/MIN
[2022-03-15 02:00] VITALS: BP 131/55
[2022-03-15] MEDS: ipratropium 0.5 MG/2.5ML nebule NEB SCH ×2 (02:48→08:55)
[2022-03-15 07:19] VITALS: BP 143/63
[2022-03-15] MEDS: K and/or MAG REPLACEMENT MC SCH (08:00)
[2022-03-15] MEDS: atorvastatin 20mg tablet PO SCH (08:32)
[2022-03-15] MEDS: docusate sod 100mg capsule PO SCH (08:34)
[2022-03-15] MEDS: loratadine 10mg tablet PO SCH (08:34)
[2022-03-15] MEDS: lisinopril 5mg tablet PO SCH (08:34)
[2022-03-15] MEDS: cyanocobalamin 500mcg tablet PO SCH (08:34)
[2022-03-15] MEDS: magnesium oxide 400mg tablet PO SCH (08:34)
[2022-03-15] MEDS: ferrous sulfate 325mg tablet PO SCH (08:35)
[2022-03-15 08:38] LABS: HEMATOCRIT 32.7 % (35.0-45.0); HEMOGLOBIN 10.4 g/dl (12.0-16.0); MEAN CORPUSCULAR HEMOGLOBIN 30.3 PG (27.0-31.0); MEAN CORPUSCULAR HGB CONC 31.8 g/dL (33.0-36.5); MEAN CORPUSCULAR VOLUME 95.2 FL (78-98); MEAN PLATELET VOLUME 7.3 FL (7.4-10.4); PLATELET COUNT 364 X10'3 (140-440); RED BLOOD COUNT 3.43 X10'6 (4.20-5.60); RED CELL DISTRIBUTION WIDTH 17.9 % (11.5-14.5); WHITE BLOOD COUNT 7.7 X10'3 (4.5-11.0)
[2022-03-15 11:36] VITALS: BP 114/66
--- NOTE | 2022-03-15 13:30 | NUR ---
Patient's IVL removed. Discharge instructions given to patient. The instructions were discussed with patient and questions answered.
== END 2022-03-15 14:39 | disposition home or self-care (01) | DRG 378 ==
LOC: ER 18:29 → ED HOLD 22:07 → PCU 3S 03-14 04:57
PROVIDERS: ADMIT Family Medicine; ATTEND Family Medicine
PROC: 30233N1 Transfusion of Nonautologous Red Blood Cells into Peripheral Vein, Percutaneous Approach (ICD-10-PCS; 2022-03-13)
PROC: 0DJ08ZZ Inspection of Upper Intestinal Tract, Via Natural or Artificial Opening Endoscopic (ICD-10-PCS; principal; 2022-03-14)
DX: K92.2 Gastrointestinal hemorrhage, unspecified (principal); D62 Acute posthemorrhagic anemia; E87.1 Hypo-osmolality and hyponatremia; K25.4 Chronic or unspecified gastric ulcer with hemorrhage; Z66 Do not resuscitate; E78.5 Hyperlipidemia, unspecified; F17.210 Nicotine dependence, cigarettes, uncomplicated; I10 Essential (primary) hypertension; I25.10 Atherosclerotic heart disease of native coronary artery without angina pectoris; I73.9 Peripheral vascular disease, unspecified; J44.9 Chronic obstructive pulmonary disease, unspecified; G89.29 Other chronic pain; M54.9 Dorsalgia, unspecified; Z82.49 Family history of ischemic heart disease and other diseases of the circulatory system; Z88.0 Allergy status to penicillin; Z79.899 Other long term (current) drug therapy; Z79.82 Long term (current) use of aspirin; Z98.42 Cataract extraction status, left eye; Z98.41 Cataract extraction status, right eye; Z90.49 Acquired absence of other specified parts of digestive tract; Z71.6 Tobacco abuse counseling
CPT/HCPCS: 36415; 36430; 43239; 80053; 82272; 83735; 85025; 85027; 85045; 86885; 86900; 86901; 86920; 87081; 88305; 94640; 94760; 97161; 97530; 99152; 99153; 99291; A4615; A4620; C9113; G0378; J2250; J3010; J7030; J7040; P9016

== ENCOUNTER 2022-06-15 08:22 | Emergency (ER) | payer MEDICARE, MEDICAID ==
[~2022-06-15] VITALS: Ht 160 cm; Wt 80.9 kg
[2022-06-15] VITALS (10 sets, daily range): BP systolic 100–137; BP diastolic 51–89
[~2022-06-15 08:22] MED LIST changes: +LISI5TAB22 PO
[2022-06-15 09:49] LABS: BASOPHILS # (AUTO) 0.1 X10'3 (0-0.2); BASOPHILS % (AUTO) 1.5 % (0-1); EOSINOPHILS # (AUTO) 0.2 X10'3 (0-0.9); EOSINOPHILS % (AUTO) 2.4 % (0-6); HEMATOCRIT 22.4 % (35.0-45.0); LYMPHOCYTES # (AUTO) 0.6 X10'3 (1.1-4.8); MEAN CORPUSCULAR HEMOGLOBIN 27.7 PG (27.0-31.0); MEAN CORPUSCULAR VOLUME 89.4 FL (78-98); MEAN PLATELET VOLUME 7.1 FL (7.4-10.4); MONOCYTES # (AUTO) 0.4 X10'3 (0-0.9); MONOCYTES % (AUTO) 5.5 % (2-12); NEUTROPHILS # (AUTO) 5.5 X10'3 (1.8-7.7); NEUTROPHILS % (AUTO) 81.6 % (42-75); PLATELET COUNT 437 X10'3 (140-440); RED BLOOD COUNT 2.51 X10'6 (4.20-5.60); RED CELL DISTRIBUTION WIDTH 18.6 % (11.5-14.5); WHITE BLOOD COUNT 6.7 X10'3 (4.5-11.0)
[2022-06-15 10:38] LABS: ALANINE AMINOTRANSFERASE 14 U/L (12-78); ALBUMIN 3.2 G/DL (3.4-5.0); ALBUMIN/GLOBULIN RATIO 0.9 (1.1-1.5); ALKALINE PHOSPHATASE 120 IU/L (46-116); ANION GAP 8 (8-16); ASPARTATE AMINO TRANSFERASE 19 U/L (10-37); BILIRUBIN,TOTAL 0.2 MG/DL (0.1-1.0); BLOOD UREA NITROGEN 12 MG/DL (7-18); BUN/CREATININE RATIO 17.1 (6.6-38.0); CALCIUM 8.7 MG/DL (8.5-10.1); CHLORIDE 96 MMOL/L (99-107); GLUCOSE 100 MG/DL (70-104); POTASSIUM 4.3 MMOL/L (3.5-5.1); SODIUM 130 MMOL/L (135-145); TOTAL CARBON DIOXIDE 25.9 MMOL/L (24-32); TOTAL PROTEIN 6.8 G/DL (6.4-8.2); eGFR 83 ML/MIN
--- NOTE | 2022-06-15 10:54 | NUR ---
consent is signed by doctor and patient
[2022-06-15 11:03] LABS: ANISOCYTOSIS 2+; PLATELET ESTIMATE NORMAL
[2022-06-15 11:04] LABS: POIKILOCYTOSIS 1+
== END 2022-06-15 16:25 | disposition home or self-care (01) ==
LOC: ER 08:23
DX: D64.9 Anemia, unspecified (principal); R53.83 Other fatigue; I25.10 Atherosclerotic heart disease of native coronary artery without angina pectoris; G89.29 Other chronic pain; Z86.2 Personal history of diseases of the blood and blood-forming organs and certain disorders involving the immune mechanism; Z98.890 Other specified postprocedural states; Z88.0 Allergy status to penicillin; Z79.899 Other long term (current) drug therapy
CPT/HCPCS: 36415; 36430; 80053; 85008; 85025; 86885; 86900; 86901; 86920; 99285; J7040; P9016

== ENCOUNTER 2024-05-28 09:48 | Day surgery (SDC) | payer MEDICARE, MEDICAID ==
[2024-05-28] VITALS (8 sets, daily range): BP systolic 104–128; BP diastolic 39–95; PULSE 79–83; RESP 16–18; O2SAT 91–96
[~2024-05-28 09:48] MED LIST changes: -MAGN500C4 PO
[2024-05-28] MEDS ORDERED: LIDOcaine 2% Viscous 15ml cup ONE (10:49)
[2024-05-28] MEDS ORDERED: simethicone 40mg/0.6ml oral drops 30ml ONE (10:50)
[2024-05-28] MEDS ORDERED: MIDAZolam 1 MG/ML 5ML VIAL ONE (10:53)
[2024-05-28] MEDS ORDERED: fentaNYL/PF 50MCG/1 ML 2ML syringe ONE (10:53)
[2024-05-28] MEDS ORDERED: diphenhydrAMINE 50 mg/ml inj ONE (10:54)
== END 2024-05-28 12:46 | disposition home or self-care (01) ==
LOC: GI LAB 09:48
PROVIDERS: ATTEND Internal Medicine Gastroenterology
DX: D50.0 Iron deficiency anemia secondary to blood loss (chronic) (principal); D64.9 Anemia, unspecified; K29.70 Gastritis, unspecified, without bleeding; D49.0 Neoplasm of unspecified behavior of digestive system; Z79.899 Other long term (current) drug therapy
CPT/HCPCS: 43239; 45378; 99152; 99153; A4620; J1200; J2250; J3010; J7030; Z7512; 88305; G0500

== ENCOUNTER 2024-06-15 06:58 | Day surgery (SDC) | payer MEDICARE, MEDICAID ==
[~2024-06-15] VITALS: Ht 154.9 cm; Wt 151.0 kg
[2024-06-15 07:19] VITALS: BP 105/65; PULSE 87; RESP 18
[2024-06-15 07:42] VITALS: TEMP 98.8
[2024-06-15] MEDS ORDERED: propofol inj 20 ML IV ONE ×2 (08:21→09:44)
[2024-06-15] MEDS ORDERED: ringers solution, lacted 1,000 ML IV SCH (08:50)
[2024-06-15] MEDS ORDERED: ondansetron/PF 4mg/2ml inj IV PRN (08:50)
[2024-06-15] MEDS ORDERED: LIDOcaine 2% (20mg/ml) 5ml vial ONE (09:01)
[2024-06-15 09:38] VITALS: BP 101/44; PULSE 78; RESP 16; O2SAT 99
[2024-06-15 09:48] VITALS: BP 101/50; PULSE 78; RESP 16; O2SAT 99
[2024-06-15 10:00] VITALS: BP 96/55; PULSE 80; RESP 16; O2SAT 98
[2024-06-15 10:10] VITALS: BP 102/58; PULSE 78; RESP 18; O2SAT 98
== END 2024-06-15 10:36 | disposition home or self-care (01) ==
LOC: GI LAB 06:58
PROVIDERS: ATTEND Internal Medicine Gastroenterology
DX: D50.9 Iron deficiency anemia, unspecified (principal); G47.30 Sleep apnea, unspecified; I10 Essential (primary) hypertension; K57.30 Diverticulosis of large intestine without perforation or abscess without bleeding; K63.89 Other specified diseases of intestine; J44.9 Chronic obstructive pulmonary disease, unspecified; Z88.0 Allergy status to penicillin
CPT/HCPCS: 45380; 74176; A4620; J2003; J2405; J2704; J7030; J7120; Z7512; 43235

== ENCOUNTER 2024-09-30 06:35 | Day surgery (SDC) | payer MEDICARE, MEDICAID ==
[~2024-09-30] VITALS: Ht 154.9 cm; Wt 143.0 kg
[~2024-09-30 06:35] MED LIST changes: -ATOR20TA66 PO; +ATOR40TA72 PO; +IPRA3AMP31 NEB; +LIDO30CR
[2024-09-30 07:13] VITALS: BP 105/42; PULSE 80; RESP 14; TEMP 98.8
[2024-09-30] MEDS ORDERED: fentaNYL/PF 50MCG/1 ML 2ML syringe ONE (08:05)
[2024-09-30] MEDS ORDERED: midazolam 1 mg/ML 2ml injection ONE (08:05)
[2024-09-30] MEDS ORDERED: propofol inj 20 ML IV ONE (08:08)
[2024-09-30] MEDS ORDERED: LIDOcaine 2% (20mg/ml) 5ml vial ONE (08:08)
[2024-09-30] MEDS ORDERED: simethicone 40mg/0.6ml oral drops 30ml ONE (08:12)
[2024-09-30 08:51] VITALS: BP 104/56; PULSE 72; RESP 20; O2SAT 93
[2024-09-30 08:55] VITALS: BP 119/55; PULSE 69; RESP 18; O2SAT 98
[2024-09-30 09:05] VITALS: BP 111/56; PULSE 68; RESP 16; O2SAT 97
[2024-09-30 09:15] VITALS: BP 103/54; PULSE 74; RESP 14; O2SAT 94
[2024-09-30 09:25] VITALS: BP 121/81; PULSE 76; RESP 14; O2SAT 100
== END 2024-09-30 09:25 | disposition home or self-care (01) ==
LOC: GI LAB 06:35
PROVIDERS: ATTEND Internal Medicine Gastroenterology
DX: D50.9 Iron deficiency anemia, unspecified (principal); K31.7 Polyp of stomach and duodenum; J44.9 Chronic obstructive pulmonary disease, unspecified; Z79.01 Long term (current) use of anticoagulants; Z88.0 Allergy status to penicillin; K31.89 Other diseases of stomach and duodenum
CPT/HCPCS: 43239; 88305; J2003; J2250; J2704; J3010; J7030; Z7512; 43244